=== PATIENT | female | born 1980 | race Hispanic/Latino ===

== ENCOUNTER 2021-01-22 10:09 | Emergency (ER) | payer MEDICARE ==
[~2021-01-22] VITALS: Ht 142.2 cm; Wt 67.1 kg
[2021-01-22] MEDS ORDERED: ONDANSETRON HCL INJ 2MG/ML 2ML 2 MG/ML VIAL IV STA (10:40)
[2021-01-22] MEDS ORDERED: SODIUM CHLORIDE 0.9% 1000ML 1,000 ML IV STA (10:40)
[2021-01-22] MEDS ORDERED: SODIUM CHLORIDE 0.9% 1000ML 1,000 ML ONE (11:02)
[2021-01-22] MEDS ORDERED: AMOXICILLI400 MG/5 M PO (11:04)
[2021-01-22] MEDS ORDERED: COLACE100 MG/10 PO (11:07)
== END 2021-01-22 11:13 | disposition home or self-care (01) ==
LOC: FSED 10:20
DX: N39.0 Urinary tract infection, site not specified (principal); J02.0 Streptococcal pharyngitis
CPT/HCPCS: 80048; 80076; 81003; 81025; 83518; 85025; 87400; 99283; J2405; J7030

== ENCOUNTER 2024-11-15 10:16 | Emergency (ER) | payer OTHER, MEDICARE ==
[~2024-11-15] VITALS: Ht 137.2 cm; Wt 69.1 kg
[~2024-11-15 10:16] MED LIST: AMOXICILLI400 MG/5 M PO; COLACE100 MG/10 PO
[2024-11-15] MEDS ORDERED: IOPAMIDOL 370 MG/ML 100 ML INFUS..BTL INJ ONE (13:05)
[2024-11-15 13:59] VITALS: PULSE 85; RESP 17; TEMP 97.5; O2SAT 94
[2024-11-15] MEDS ORDERED: MACROBID 100 M100 MG PO (14:16)
== END 2024-11-15 14:28 | disposition home or self-care (01) ==
LOC: FSED 10:24
DX: R10.33 Periumbilical pain (principal); N39.0 Urinary tract infection, site not specified; I10 Essential (primary) hypertension; G40.909 Epilepsy, unspecified, not intractable, without status epilepticus; R62.59 Other lack of expected normal physiological development in childhood
CPT/HCPCS: 74177; 80048; 80076; 81003; 81025; 85025; 99284; Q9967